=== PATIENT | male | born 1990 | race American Indian/Alaskan Native ===

== ENCOUNTER 2017-04-10 12:30 | Emergency (ER) | payer SELFPAY ==
[2017-04-10 12:57] VITALS: BP 114/63
--- NOTE | 2017-04-10 14:01 | Emergency Department Report ---
ED Medical Clearance HPI - General Chief complaint: Medical Clearance Stated complaint: STUCK WITH DIRTY NEDDLE Time Seen by Provider: 04/10/17 13:48 Source: patient Mode of arrival: Ambulatory - History of Present Illness Initial comments: 26-year-old malesignificant past medical history presents with complaint of needle stick injury to right distal fingertip pad. 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 Patient states that there was minimal to no bleeding and denies a needle stick injury to any other body part. Patient is awake alert and oriented 3 not in acute distress fully lucid. States that the patient was being transported from jail and as per the jail log had no history of HIV or hepatitis that he was aware of. That person is currently being hospitalized at [facility] as per this EMT. Patient states that he is interested in counseling for postexposure prophylaxis. Patient states that he immediately irrigated the area with soap and water after the stick Onset/Timin -: hour(s) Reason for Medical Clearance: other (needle stick injury with glucose Lancet to tip of finger) Place: work Alledged Intoxication: No Compliant with Home Medications: No Traumatic Symptoms: abrasion (tiny abrasion to tip of finger tip pad index finger) Treatments Prior to Arrival: none Allergies/Adverse reactions: Allergies Allergy/AdvReac Type Severity Reaction Status Date / Time No Known Allergies Allergy Unverified 04/10/17 12:54 ED Review of Systems ROS: Stated complaint: STUCK WITH DIRTY NEDDLE Other details as noted in HPI Constitutional: denies: chills, fever Eyes: denies: eye pain, eye discharge, vision change ENT: denies: ear pain, throat pain Respiratory: denies: cough, shortness of breath, wheezing Cardiovascular: denies: chest pain, palpitations Endocrine: no symptoms reported Gastrointestinal: denies: abdominal pain, nausea, diarrhea Genitourinary: denies: urgency, dysuria Musculoskeletal: denies: back pain, joint swelling, arthralgia Skin: denies: rash, lesions Neurological: denies: headache, weakness, paresthesias Psychiatric: denies: anxiety, depression Hematological/Lymphatic: denies: easy bleeding, easy bruising ED Past Medical Hx - Past Medical History Previous Medical History?: No - Surgical History Past Surgical History?: No - Social History Smoking Status: Never Smoker Substance Use Type: Alcohol ED Physical Exam - General Limitations: No Limitations General appearance: alert, in no apparent distress - Head Head exam: Present: atraumatic, normocephalic - Eye Eye exam: Present: normal appearance, PERRL, EOMI - ENT ENT exam: Present: mucous membranes moist - Neck Neck exam: Present: normal inspection - Respiratory Respiratory exam: Present: normal lung sounds bilaterally. Absent: respiratory distress - Cardiovascular Cardiovascular Exam: Present: regular rate, normal rhythm. Absent: systolic murmur, diastolic murmur, rubs, gallop - GI/Abdominal GI/Abdominal exam: Present: soft, normal bowel sounds - Rectal Rectal exam: Present: deferred - Extremities Exam Extremities exam: Present: normal inspection - Expanded Upper Extremity Exam Right Hand L/R Front: 1 - Positive: abrasion (minimally visible abrasion here) - Back Exam Back exam: Present: normal inspection - Neurological Exam Neurological exam: Present: alert, oriented X3 - Psychiatric Psychiatric exam: Present: normal affect, normal mood - Skin Skin exam: Present: warm, dry, intact, normal color. Absent: rash ED Course Vital Signs 04/10/17 12:54 Temperature 98.3 F Pulse Rate 50 L Respiratory 18 Rate Blood Pressure 114/63 O2 Sat by Pulse 99 Oximetry ED Medical Decision Making - Medical Decision Making A/P: Needlestick injury while at work, fingertip abrasion 1-I provided the patient with option for exposure prophylaxis using CDC and [employer] guidelines for healthcare personnel https://www.[employer]/ contents/hkjozhplzl-gj-ncvydmaeum-waaglwwhy-wxzxpfw-at-hiv?source=search_result& search=risk%20of%20hiv%20exposure&selectedTitle=1~150#H29 https://www.cdc.gov/ niosh/topics/bbp/emergnedl.html. https://www.cdc.gov/mary/pdfs/bbp/exp_to_ blood.pdf. https://www.cdc.gov/hiv/risk/pep/index.html 2- based on percutaneous Lancet stick injury to fingertip I referenced up-to- date.com's risk stratification . transmission occurred in 20 of 6135 cases ( 0.33 percent) following percutaneous exposure. I informed the patient of this 3-I offered the patient prophylaxis with Isentress and Truvada as per the current recommendations and patient declined post exposure prophylaxis 4- I provided the patient with follow-up for primary care infectious disease and also provided him with information for free HIV and blood borne illness testing via [employer] https://www.[employer].org/page.aspx?mnq=791 5-I informed the patient that it is typical to obtain baseline labs including BMP and LFTs renal function baseline HIV status baseline hepatitis status from him secondary to needle stick injury. Patient stated that because he does not believe he is at high risk at this time that he is declining any current lab work. I specifically advised the patient that if he decides to obtain post exposure prophylaxis treatment that he should do so as soon as possible and that his window of opportunity is within 72 hours and that the efficacy of these medicines diminishes significantly after 72 hours post exposure. Ideally prophylaxis should happen immediately after exposure as per the current recommendations. Patient stated that he is not concerned in that he is aware of the risks and benefits of postexposure prophylaxis but he is not interested at this time and does not wish to be tested and/or treated at this time. 6- I presented the case to who also interviewed and briefly discussed the scenario with the patient. Patient expressed in front of myself and Dr. 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 My patient stated that he would attempt to do so via his ambulance company and would request this from either the patient or medical staff there. If this other person is HIV/hepatitis negative there is an extremely low likelihood of him obtaining any blood borne illness 8- patient states ED attending and I'm that his tetanus and hepatitis vaccinations and other routine vaccinations are up-to-date ED Disposition Clinical Impression: Needlestick injury accident Qualifiers: Encounter type: initial encounter Qualified Code(s): W27.3XXA - Contact with needle (sewing), initial encounter Disposition: DC- TO HOME OR SELFCARE Is pt being admited?: No Does the pt Need Aspirin: No Condition: Stable Instructions: Postexposure Prophylaxis (ED) Additional Instructions: https://www.[facility].org/page.aspx?nnl=856 Patient elected to not take post exposure prophylaxis after discussing risks and benefits with him. I advised patient that if he changes his mind he has approximately 72 hours maximum for the prophylaxis is no longer clinically effective. I informed the patient the prophylaxis sooner rather than later is highly effective. Referrals: MARK BRICENO MD [Staff Physician] - 3-5 Days GABI GUERRA MD [Staff Physician] - 3-5 Days [facility] [Outside] - 3-5 Days [facility] [Provider Group] - 3-5 Days CECILIO QUIROGA MD [Staff Physician] - 3-5 Days Forms: Work/School Release Form(ED)
== END 2017-04-10 14:15 | disposition home or self-care (01) ==
LOC: ED 12:30
DX: S61.230A Puncture wound without foreign body of right index finger without damage to nail, initial encounter (principal); S60.410A Abrasion of right index finger, initial encounter; W27.3XXA Contact with needle (sewing), initial encounter
CPT/HCPCS: 99282